=== PATIENT | male | born 2000 | race Hispanic/Latino ===

== ENCOUNTER 2021-04-03 16:43 | Emergency (ER) | payer OTHER ==
[2021-04-03] MEDS ORDERED: LIDOCAINE 1% 20 ML MDV ONE (17:56)
[2021-04-03] MEDS ORDERED: BUPIVACAINE 0.5% PF 10 ML VIAL ONE (17:56)
--- NOTE | 2021-04-03 18:32 | RAD REPORT ---
EXAM DESCRIPTION: RAD - Hand Right 3 View - 04/03/2021 5:33 pm CLINICAL HISTORY: fishhook COMPARISON: No comparisons FINDINGS: A 3 prong fish of is present in the soft tissues of the right hand near the base of the se cond proximal phalanx. No fracture identified. Bony involvement is not confirmed. Second MCP joint is not involved.
--- NOTE | 2021-04-03 18:59 | EDPHYS ---
Physician Documentation [facility] Name: Ismael Ocasio Age: 20 yrs Sex: Male : 2000 Arrival Date: 04/03/2021 Time: 16:46 Bed DX1 Private MD: ED Physician Gustavo Currie HPI: 04/03 16:58 This 20 yrs old Male presents to ER via Unassigned with complaints of Fish cp Hook in finger. 16:58 The patient or guardian reports injury. The complaints affect the dorsal side proximal cp right index finger. Onset: The symptoms/episode began/occurred just prior to arrival. Patient c/o of embedded fishhook. 16:58 Associated signs and symptoms: Pertinent negatives: cyanosis distally, decreased cp sensation distally. Historical: - Allergies: 16:58 shrimp; ss - Home Meds: 16:58 None [Active]; ss - PMHx: 16:58 None; ss - PSHx: 16:58 Cholecystectomy; ss - Immunization history:: Adult Immunizations up to date. - Social history:: Smoking status: Patient denies any tobacco usage or history of. ROS: 16:59 Constitutional: Negative for fever. cp 16:59 MS/extremity: Positive for pain, of the right index finger, embedded fishhook. 16:59 All other systems are negative. Exam: 17:05 Constitutional: The patient appears in no acute distress, alert, awake, non-toxic, well cp developed, well nourished. 17:05 Head/Face: Normocephalic, atraumatic. cp 17:05 Chest/axilla: Inspection: normal. 17:05 Cardiovascular: Rate: normal. 17:05 Respiratory: the patient does not display signs of respiratory distress, Respirations: normal. 17:05 Musculoskeletal/extremity: ROM: full active range of motion, in the right index finger, 2 point discrimination intact of right index finger Tendon exam: specific tendon testing normal through active and passive range of motion 17:05 Skin: injury, that can be described as with mild bleeding, puncture(s), that are deep, of the proximal phalanx dorsal side right index finger, embedded metal fishhook. Vital Signs: 16:54 Resp 16; Weight 81.65 kg; Height 5 ft. 7 in. (170.18 cm); Pain 5/10; ss 17:11 BP 112 / 66; Pulse 77; Resp 16; Pulse Ox 98% ; ss 16:54 Body Mass Index 28.19 (81.65 kg, 170.18 cm) ss Procedures: 18:29 Foreign Body Removal: a fishhook, from the dorsal side proximal phalanx right index cp finger, by using a hemostat, The patient tolerated the removal well. MDM: 17:21 Patient medically screened. cp 17:30 Differential diagnosis: open fracture, tendon injury. cp 18:58 Data reviewed: vital signs, nurses notes, radiologic studies, plain films. cp 18:58 Test interpretation: by ED physician or midlevel provider: repeat xrays of right index cp finger negative for fracture and/or foreign body. Counseling: I had a detailed discussion with the patient and/or guardian regarding: the historical points, exam findings, and any diagnostic results supporting the discharge/admit diagnosis, radiology results, the need for outpatient follow up, a hand specialist, to return to the emergency department if symptoms worsen or persist or if there are any questions or concerns that arise at home. Response to treatment: the patient's symptoms have markedly improved after treatment, and as a result, I will discharge patient. ED course: VSS. Foreign body removed successfully, wound irrigated and dressed. Will discharge to home for continued monitoring. 04/03 16:58 Order name: XRAY Hand RIGHT 3 View 04/03 18:23 Order name: XRAY Hand RIGHT 2 View ss 04/03 17:22 Order name: Dressing - Wound; Complete Time: 19:21 cp 04/03 17:22 Order name: Gloves, Sterile; Complete Time: 18:10 cp 04/03 17:22 Order name: Setup Suture Tray; Complete Time: 18:10 cp 04/03 18:56 Order name: Wound Care: please clean and dress wound; Complete Time: 19:21 cp 04/03 18:56 Order name: Finger Splint; Complete Time: 19:21 cp Administered Medications: 17:01 CANCELLED (Physician Discretion): HYDROcodone-acetaminophen 5 mg-325 mg 1 tabs PO once; cp RASS on ADMIN: Combtv4, Very Agttd3, Agttd2, Rstlss1, AlertClm0, Drwsy-1, Lt Sdtn-2, Mod Sdtn-3, Dp Sdtn-4, UnArsble-5 17:01 CANCELLED (Physician Discretion): Ibuprofen 800 mg PO once cp 18:10 Drug: Lidocaine (1 %) 10 ml {Note: administered by PA. Tommy} Volume: 20 ml; Route: ss Infiltration; 18:10 Drug: Marcaine (bupivacaine) (0.5 %) 10 ml {Note: administered by PA. Deborah} Volume: 10 ss ml; Route: Infiltration; Disposition: 19:15 Chart complete. cp 04/04 18:38 Co-signature as Attending Physician, Gustavo Currie MD I agree with the assessment and tw4 plan of care. Disposition Summary: 04/03/21 18:58 Discharge Ordered Location: Home cp Problem: new cp Symptoms: have improved cp Condition: Stable cp Diagnosis - Puncture wound with foreign body of finger without damage to nail - Right Index, cp fishhook removal Followup: cp - With: Fam Nix MD - When: 2 - 3 days - Reason: Wound Recheck Discharge Instructions: - Discharge Summary Sheet cp - Puncture Wound cp - Hand or Foot Foreign Body, Adult cp Forms: - Medication Reconciliation Form cp - Thank You Letter cp - Antibiotic Education cp - Prescription Opioid Use cp Prescriptions: - Doxycycline Hyclate 100 mg Oral Tablet - take 1 tablet by ORAL route every 12 hours; 20 tablet; Refills: 0, Product cp Selection Permitted - Diclofenac Sodium 75 mg Oral tablet,delayed release (DR/EC) - take 1 tablet by ORAL route 2 times per day; 20 tablet; Refills: 0, Product cp Selection Permitted - Bactrim DS 800-160 mg Oral Tablet - take 1 tablet by ORAL route every 12 hours for 10 days; 20 tablet; Refills: 0, cp Product Selection Permitted Signatures: Dispatcher [employer] Kianna Porras RN RN ss oTmmy Cabrera PA PA cp Gustavo Currie MD MD tw4 Corrections: (The following items were deleted from the chart) 04/03 17:01 16:58 HYDROcodone-acetaminophen 5 mg-325 mg 1 tabs PO once; RASS on ADMIN: Combtv4, cp Very Agttd3, Agttd2, Rstlss1, AlertClm0, Drwsy-1, Lt Sdtn-2, Mod Sdtn-3, Dp Sdtn-4, UnArsble-5 ordered. cp 17:01 16:58 Ibuprofen 800 mg PO once ordered. cp cp
--- NOTE | 2021-04-03 18:59 | ER ---
Nurse's Notes [facility] Name: Ismael Ocasio Age: 20 yrs Sex: Male : 2000 Arrival Date: 04/03/2021 Time: 16:46 Bed DX1 Private MD: Diagnosis: Puncture wound with foreign body of finger without damage to nail-Right Index, fishhook removal Presentation: 04/03 16:54 Chief complaint: Patient states: treble hook to R hand that occurred 1 hour ago [place]. Coronavirus screen: Client denies travel out of the [place] in the last 14 days. Ebola Screen: Patient denies exposure to infectious person. Patient denies travel to an Ebola-affected area in the 21 days before illness onset. Initial Sepsis Screen: Does the patient meet any 2 criteria? No. Patient's initial sepsis screen is negative. Does the patient have a suspected source of infection? No. Patient's initial sepsis screen is negative. Risk Assessment: Do you want to hurt yourself or someone else? Patient reports no desire to harm self or others. Onset of symptoms was April 03, 2021. 16:54 Method Of Arrival: EMS: [facility] 16:54 Acuity: [facility] 4 16:54 Note Fentanyl 100 mcg given IVP en route to ED. ss Historical: - Allergies: 16:58 shrimp; ss - Home Meds: 16:58 None [Active]; ss - PMHx: 16:58 None; ss - PSHx: 16:58 Cholecystectomy; ss - Immunization history:: Adult Immunizations up to date. - Social history:: Smoking status: Patient denies any tobacco usage or history of. Screenin:21 Abuse screen: Denies threats or abuse. Nutritional screening: No deficits noted. em Tuberculosis screening: No symptoms or risk factors identified. Fall Risk None identified. Assessment: 17:00 General: Appears in no apparent distress. comfortable, Behavior is calm, cooperative. ss Pain: Complains of pain in affected area Pain currently is 5 out of 10 on a pain scale. Alleviated by medications. Neuro: Level of Consciousness is awake, alert, obeys commands, Oriented to person, place, time, situation. Respiratory: Airway is patent Respiratory effort is even, unlabored, Respiratory pattern is regular, symmetrical. Derm: Skin is intact, is healthy with good turgor, Skin is dry, Skin is pink, warm \T\ dry. normal. Injury Description: Puncture treble hook noted to hand. Vital Signs: 16:54 Resp 16; Weight 81.65 kg; Height 5 ft. 7 in. (170.18 cm); Pain 5/10; ss 17:11 BP 112 / 66; Pulse 77; Resp 16; Pulse Ox 98% ; ss 16:54 Body Mass Index 28.19 (81.65 kg, 170.18 cm) ss ED Course: 16:46 Patient arrived in ED. mr 16:57 Tommy Cabrera PA is PHCP. cp 16:57 Gustavo Currie MD is Attending Physician. cp 16:58 Triage completed. ss 16:58 Arm band placed on right wrist. ss 17:27 Kianna Viera, CATIA is Primary Nurse. ss 17:33 XRAY Hand RIGHT 3 View In Process Unspecified. EDMS 18:57 Fam Nix MD is Referral Physician. cp 19:14 XRAY Hand RIGHT 2 View In Process Unspecified. EDMS 19:21 Patient has correct armband on for positive identification. em 19:21 IV discontinued, intact, bleeding controlled, No redness/swelling at site. Pressure em dressing applied. Administered Medications: 17:01 CANCELLED (Physician Discretion): HYDROcodone-acetaminophen 5 mg-325 mg 1 tabs PO once; cp RASS on ADMIN: Combtv4, Very Agttd3, Agttd2, Rstlss1, AlertClm0, Drwsy-1, Lt Sdtn-2, Mod Sdtn-3, Dp Sdtn-4, UnArsble-5 17:01 CANCELLED (Physician Discretion): Ibuprofen 800 mg PO once cp 18:10 Drug: Lidocaine (1 %) 10 ml {Note: administered by JOHN Sanders.} Volume: 20 ml; Route: ss Infiltration; 18:10 Drug: Marcaine (bupivacaine) (0.5 %) 10 ml {Note: administered by PA. Deborah} Volume: 10 ss ml; Route: Infiltration; Outcome: 18:58 Discharge ordered by MD. cp 19:21 Discharged to home ambulatory, with family. em 19:21 Condition: stable 19:21 Discharge instructions given to patient, family, Instructed on discharge instructions, follow up and referral plans. medication usage, Demonstrated understanding of instructions, follow-up care, medications, Prescriptions given X 3. 19:23 Patient left the ED. em Signatures: Dispatcher [employer] Veronica Hale Edgar, RN RN Kianna Pompa RN RN ss Tommy Cabrera, JOHN PA cp
[2021-04-03 19:30] VITALS: BP 112/66; O2SAT 98
--- NOTE | 2021-04-03 20:38 | RAD REPORT ---
EXAM DESCRIPTION: RAD - Hand Right 2 View - 04/03/2021 7:14 pm FINDINGS: Patient has been removed from the second digit. No remnant foreign body. No bone abnormality seen.
== END 2021-04-03 19:23 | disposition home or self-care (01) ==
LOC: ER 16:43
DX: S61.240A Puncture wound with foreign body of right index finger without damage to nail, initial encounter (principal); Z91.013 Allergy to seafood
CPT/HCPCS: 99284